=== PATIENT | female | born 1970 | race Caucasian/White ===

== ENCOUNTER 2019-01-27 10:07 | Emergency (ER) | payer OTHER ==
[2019-01-27] MEDS ORDERED: cephALEXin 250 MG CAPSULE PO STA (11:59)
[2019-01-27] MEDS ORDERED: SULFAMETH/TRIMETH DS 800/160 MG TABLET PO STA (11:59)
[2019-01-27 12:12] VITALS: BP 145/111
--- NOTE | 2019-01-27 22:31 | ED Physician Documentation ---
History of Present Illness - Stated complaint Stated Complaint: NECK PX/SWELLING - Chief complaint Chief Complaint: General - Additonal information Additional information: This is a 48 year old female who presents with redness and swelling under her chin for several days. She thinks this started as a spider bite, and has slowly grown over the last several days. It has not been draining anything. She is visiting from [place] and in town for a wedding. She denies any pain with swallowing, difficulty breathing, or fever. She has not been on antibiotics. 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: Tubal ligation - Present Medications Home Medications: Ambulatory Orders Medication Instructions Recorded Confirmed Cephalexin [Keflex] 500 mg PO Q6H #32 capsule 01/27/19 Sulfamethox/Trimeth 800/160 1 each PO BID #16 tablet 01/27/19 [Bactrim Ds 800/160] - Allergies Allergies/Adverse Reactions: Allergies Allergy/AdvReac Type Severity Reaction Status Date / Time No Known Drug Allergies Allergy Verified 01/27/19 10:14 - Social History Does the pt smoke?: No Smoking Status: Never smoker Does the pt drink ETOH?: No Does the pt have substance abuse?: No - Immunizations Immunizations are current?: Yes PD ED PE NORMAL - Vitals Vital signs reviewed: Yes - General General: Alert and oriented X 3, No acute distress - HEENT HEENT: Other (There is a 4cm diameter area of erythema and induration just inferior to the chin. There is no purulent drainage or pustule. The area is mildly tender to palpation. Floor of the mouth is soft, airway widely patent, acitve ROM of the neck is normal and painless, and there is no trismus.) - Neck Neck: Supple, no meningeal sign - Cardiac Cardiac: RRR (HR in 90s on my exam) - Respiratory Respiratory: No respiratory distress, Clear bilaterally - Derm Derm: Warm and dry - Extremities Extremities: No deformity - Neuro Neuro: Alert and oriented X 3 - Psych Psych: Normal mood, Normal affect Results - Vitals Vitals: Vital Signs - 24 hr 10/25/19 10/25/19 10:12 12:12 Temperature 37 C 37 C Heart Rate 104 H 96 Respiratory 20 16 Rate Blood Pressure 158/114 H 145/111 H O2 Saturation 94 98 Oxygen O2 Source Room air - Rads (name of study) POCUS of neck Radiology: Other (Cobblestoning without obvious drainable fluid collection.) PD MEDICAL DECISION MAKING - ED course Complexity details: considered differential (Abscess, cellulitis, deep space infection) ED course: On arrival patient is tachycardic in triage, HR normal on my exam. She is non- toxic. US shows no obvious drainable collection under her chin, but does show signs of infection/inflammation. She has excellent ROM of her neck, no signs of deep space infection, ludwigs angina, or more serious infection as this time, but I discussed that this area is prone to complications and progression of infections and recommended CT for further evaluation. Patient declined, she would like to trial antibiotics and follow up closely, as she needs to leave for her sister's wedding. 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 I emphasized that any pain with ROM, effects on her breathing, or pain/difficulty swallowing should prompt immediate return to the ED. I prescribed her TMP-SMX and Keflex and discussed that she should return to the ED at anytime, but definitely in the next 12-24 hours. Patient agrees and was discharged in the care of family, who also agree with the plan. Departure - Departure Disposition: 01 Home, Self Care Clinical Impression: Cellulitis Qualifiers: Site of cellulitis: face Qualified Code(s): L03.211 - Cellulitis of face Condition: Good Instructions: Cellulitis Dc Follow-Up: In, A Emergency department [Other] (Within 24 hours for a recheck, sooner with any worsening) Prescriptions: Cephalexin [Keflex] 500 mg PO Q6H #32 capsule Sulfamethox/Trimeth 800/160 [Bactrim Ds 800/160] 1 each PO BID #16 tablet Comments: You were seen today for an infection around your chin. At this time I do not see signs of an obvious drainable fluid collection/abscess, but there are signs of significant infection. This infection can spread quickly to regions deeper in the neck, and cause serious infections, so it is very important that if you develop any worsening whatsoever, especially any issues swallowing or breathing or fever that you return to the emergency department to receive a CT scan of your neck and further evaluation. Even if things are not getting worse, please be rechecked in the next 12-24 hrs in an emergency department. Take the antibiotics as prescribed. Discharge Date/Time: 01/27/19 12:18
== END 2019-01-27 12:18 | disposition home or self-care (01) ==
LOC: ED 10:07
DX: L03.211 Cellulitis of face (principal); Z86.14 Personal history of Methicillin resistant Staphylococcus aureus infection
CPT/HCPCS: 99282; 99283; A9270